=== PATIENT | male | born 1965 | race Caucasian/White ===

== ENCOUNTER 2017-06-28 06:11 | Emergency (ER) | payer MEDICAID ==
[~2017-06-28] VITALS: Ht 177.8 cm; Wt 72.6 kg
--- NOTE | 2017-06-28 06:22 | NUR ---
PT BIB FRIEND FROM HOME, PT C/O LEFT KNEE INFECTION X 5 DAYS. PT W/C TO ER BED 8. PT AOX3 RR EVEN AND UNLABORED. NO SOB NOTED. NAD NOTED. NO NVD AT THIS TIME. PT NOT DIPAHORETIC. PT GOWNED AND PLACED ON MONITOR WAITING FOR MD OTT.
--- NOTE | 2017-06-28 06:25 | NUR ---
DR. SEVILLA AT BEDSIDE FOR EVAL.
[2017-06-28] MEDS ORDERED: SULFAMETH/TRIMETH 800/160 MG 1 UDTAB TABLET PO ONE ×2 (06:30→06:31)
[2017-06-28 06:35] VITALS: BP 130/78
== END 2017-06-28 06:35 | disposition home or self-care (01) ==
LOC: ER 06:13
DX: L03.116 Cellulitis of left lower limb (principal); F17.200 Nicotine dependence, unspecified, uncomplicated; B19.20 Unspecified viral hepatitis C without hepatic coma
CPT/HCPCS: 99282; 99406; A4606; Z7610